=== PATIENT | male | born 1950 | race Caucasian/White ===

== ENCOUNTER → 2017-08-25 | Outpatient (CLI) | payer BC, MEDICARE ==
[~2017-08-25] MED LIST: AMLO-104 PO; DOC100 PO; DON PO; DYA PO; HCTZ; HCTZ25 PO; HYDR12.597 PO; LACT10SO58 PO; LEVO75TA68 PO; LIS20 PO; MIR; OLME40TA17 PO; OMEP-218 PO; [UNRECOGNIZED DRUG - OTHER] PO
[2017-08-25 09:32] LABS: LDL CHOLESTEROL 39 mg/dl
== END ==
LOC: LAB 08:45
PROVIDERS: ATTEND Family Medicine
DX: I10 Essential (primary) hypertension (principal); E78.5 Hyperlipidemia, unspecified; E03.9 Hypothyroidism, unspecified; E11.65 Type 2 diabetes mellitus with hyperglycemia
CPT/HCPCS: 36415; 82040; 82043; 82247; 82310; 82374; 82435; 82465; 82565; 82947; 83036; 83718; 84075; 84132; 84155; 84295; 84443; 84450; 84460; 84478; 84520

== ENCOUNTER → 2018-02-14 | Outpatient (CLI) | payer BC, MEDICARE ==
[2018-02-14 09:03] LABS: LDL CHOLESTEROL 39 mg/dl
== END ==
LOC: LAB 08:24
PROVIDERS: ATTEND Family Medicine
DX: Z00.00 Encounter for general adult medical examination without abnormal findings (principal)
CPT/HCPCS: 36415; 82040; 82247; 82310; 82374; 82435; 82465; 82565; 82947; 83718; 84075; 84132; 84153; 84155; 84295; 84443; 84450; 84460; 84478; 84520; 85027

== ENCOUNTER → 2018-09-05 | Outpatient (CLI) | payer BC, MEDICARE ==
[~2018-09-05] MED LIST changes: +BARIUM SULFATE 176 GM BTL PO ONE; +BARIUM SULFATE 340 GM POWD ONE; +NYST15CR33 TP; +TAMS0.4C25 PO
--- NOTE | 2018-09-05 17:23 | RADIOLOGY IMAGING REPORT ---
FACILITY: [facility] - [place] PATIENT NAME: Kane Wilhelm : 1950 MR: [id number] V: [id number] EXAM DATE: ORDERING PHYSICIAN: MARLENE HART TECHNOLOGIST: Location: [facility] Patient: Kane Wilhelm : 1950 Visit/Account:[id number] Date of Sevice: 09/05/2018 Exam type: XR UPPER GI SERIES W/O KUB History: GERD and coughing Comparison: None. Findings: Double contrast upper GI series was performed with thick and thin barium and air contrast there is mi ld narrowing at the junction of the cervical and thoracic esophagus. Moderate gastric esophageal ref lux was observed. The duodenal bulb appeared small and scarred. Did not fill well with contrast [facility] contrast did move freely into the proximal small bowel without evidence of obstruction. The pa tient does give a history of a perforated duodenal ulcer in this teenage years. The study was somewh at limited due to limited patient mobility The stomach was grossly unremarkable although not ideally evaluated. The dose area product was 4126.77 micro-Ruiz per meter squared IMPRESSION: There is mild narrowing at the junction of the cervical and thoracic esophagus There is moderate gastroesophageal reflux The duodenal bulb appeared small and scarred and did not fill well with contrast although contrast di d move freely into the proximal small bowel without evidence of obstruction. The patient gives a his tory of a perforated duodenal ulcer in his teenage years Study was somewhat limited due to limited patient mobility. The stomach was grossly unremarkable [facility] not ideally evaluated Report Dictated By: Perla Hassan MD at 09/05/2018 5:14 PM Report E-Signed By: Perla Hassan MD at 09/05/2018 5:19 PM WSN:[id number]
== END ==
LOC: RAD 01:03
PROVIDERS: ATTEND Family Medicine
DX: K22.2 Esophageal obstruction (principal); K21.9 Gastro-esophageal reflux disease without esophagitis
CPT/HCPCS: 74240

== ENCOUNTER → 2018-11-29 | Outpatient (CLI) | payer BC, MEDICARE ==
[~2018-11-29] MED LIST changes: -BARIUM SULFATE 176 GM BTL PO ONE; -BARIUM SULFATE 340 GM POWD ONE
[2018-11-29 10:11] LABS: PLATELET COUNT, AUTOMATED 164 K/uL (150-450)
--- NOTE | 2018-11-29 10:23 | EKG ---
FACILITY: [facility] PATIENT NAME: RD BHANDARI : [id number] MR: [id number] V: [id number] EXAM DATE: ORDERING PHYSICIAN: MARLENE HART TECHNOLOGIST: YAZMIN Peoples Reason : PRE-OP Blood Pressure : / mmHG Vent. Rate : 077 BPM Atrial Rate : 077 BPM P-R Int : 192 ms QRS Dur : 080 ms QT Int : 372 ms P-R-T Axes : 065 051 022 degrees QTc Int : 420 ms Normal sinus rhythm Low voltage QRS No ST-T abnormalities No previous ECGs available Confirmed by DAWN ELLIS ([id number]) on 11/29/2018 12:45:57 PM Referred By: TANNER Confirmed By:DAWN ELLIS
--- NOTE | 2018-11-29 11:41 | RADIOLOGY IMAGING REPORT ---
FAC[place] [facility] [place]IENT NAME: Kane Wilhelm : 1950 MR: [id number] V: [id number] EXAM DATE: ORDERING PHYSICIAN: MARLENE HART TECHNOLOGIST: Location: [facility] Patient: Kane Wilhelm : 1950 Visit/Account:[id number] Date of Sevice: 11/29/2018 CHEST PA LAT HISTORY: Sleep apnea. COMPARISON: Chest x-ray February 16, 2016. FINDINGS: Cardiomediastinal contours: The heart size is normal. Lungs and pleura: There is no finding of an infiltrate, lymphadenopathy or pleural effusion. Bones/soft tissues: There are no findings of a fracture. IMPRESSION: No active disease in the chest. Report Dictated By: Eric Leavitt MD at 11/29/2018 11:34 AM Report E-Signed By: Eric Leavitt MD at 11/29/2018 11:35 AM WSN:[email or web address]
== END ==
LOC: LAB 09:30
PROVIDERS: ATTEND Family Medicine
DX: Z01.810 Encounter for preprocedural cardiovascular examination (principal); Z01.812 Encounter for preprocedural laboratory examination; Z01.818 Encounter for other preprocedural examination; E11.65 Type 2 diabetes mellitus with hyperglycemia; I10 Essential (primary) hypertension; E03.9 Hypothyroidism, unspecified; G47.33 Obstructive sleep apnea (adult) (pediatric)
CPT/HCPCS: 36415; 71046; 82040; 82043; 82247; 82310; 82374; 82435; 82465; 82565; 82947; 83036; 83718; 84075; 84132; 84155; 84295; 84443; 84450; 84460; 84478; 84520; 85025; 93005